=== PATIENT | female | born 1985 | race Caucasian/White ===

== ENCOUNTER 2022-07-01 19:50 | Emergency (ER) | payer OTHER, SELFPAY ==
[2022-07-01 20:02] VITALS: BP 135/82; PULSE 85; RESP 19; TEMP 36.7; O2SAT 99
--- NOTE | 2022-07-01 20:30 | ED.ANIMALBIT ---
HPI - Animal Bite General Chief Complaint: Animal Bite Stated Complaint: bat exposure, unknown if bitten/scratched Time Seen by Provider: 07/01/22 20:14 History of Present Illness HPI narrative: Patient is a 37-year-old female who is currently about 16 weeks here for evaluation of a bat exposure earlier today. Patient states that her and her were sleeping in the room, and then woke up and noticed that a bat was flying around the room. They are unsure how the bat got in the room, how long it was there, or if they were exposed. They called the health department who recommended coming into the emergency department for the rabies immunoglobulin and vaccine. She is currently asymptomatic. Bat was not quarantined. Tetanus UTD Related Data Home Medications Medication Instructions Recorded Confirmed Daily 07/01/22 Effexor 07/01/22 aspirin 81 mg chewable tablet 81 mg PO DAILY 07/01/22 07/01/22 Allergies Allergy/AdvReac Type Severity Reaction Status Date / Time amoxicillin Allergy Unknown Verified 07/01/22 20:06 Review of Systems Review of Systems: Gen.: Denies fevers or chills Eyes: Denies eye pain or visual change ENT: Denies congestion Respiratory: Denies shortness of breath or cough CV: Denies chest pain or palpitations GI: Denies abdominal pain nausea, emesis or diarrhea denies burning, urgency, frequency or hematuria Musculoskeletal: Denies back pain or muscle pain Neuro: Denies numbness, tingling, weakness or focal weakness Skin: Denies rash Except as documented, all other systems reviewed and negative Exam Narrative: APPEARANCE: Well appearing, no pain in distress, well-nourished. Head: Normocephalic and atraumatic. EYES: PERRLA/EOMI, conjunctivae clear NOSE: No nasal drainage EARS: External ear normal in appearance THROAT: Oropharynx is clear. Mucous membranes are moist. NECK: Supple. No adenopathy, no masses. RESPIRATORY: Airway patent, respirations nonlabored. Clear to auscultation bilaterally, no rales, rhonchi, wheezing. CARDIOVASCULAR: Regular rate and rhythm without murmurs, rubs, or gallops. ABDOMINAL: Normoactive bowel sounds. Soft, nontender, nondistended. No rebound tenderness or guarding. MUSCULOSKELETAL: Extremities are warm and well-perfused. Moves all extremities well. No edema. NEURO: Normal speech. No focal neurologic deficits. SKIN: Skin is warm and dry. No rashes. PSYCHIATRIC: Normal affect/mood.. Course Vital Signs Vital signs: Vital Signs Temperature 98.0 F 07/01/22 20:02 Pulse Rate 85 07/01/22 20:02 Respiratory Rate 19 07/01/22 20:02 Blood Pressure 135/82 07/01/22 20:02 Pulse Oximetry 99 07/01/22 20:02 Oxygen Delivery Room Air 07/01/22 20:02 Temperature 98.0 F 07/01/22 20:02 Pulse Rate 86 07/01/22 22:39 Respiratory Rate 18 07/01/22 22:39 Blood Pressure 135/82 07/01/22 20:02 Pulse Oximetry 100 07/01/22 22:39 Oxygen Delivery Room Air 07/01/22 20:02 MDM - Animal Bite MDM Narrative Medical decision making narrative: 37-year-old female here for evaluation and rabies vaccine/immunoglobulin per recommendation of health department after exposure to a bat earlier today. Vital signs are normal and she is nontoxic-appearing. Discussed risks vs. benefits of rabies vaccine in ; evidence supports administration of vaccine and immunoglobulin. Patient elected to proceed with vaccination. She was given anticipatory guidance regarding the next steps for the vaccine, which she was given reasons to return to the ED. Discharge Plan Discharge Clinical Impression: Exposure to bat without known bite Patient Disposition: Home, Self-Care Condition: Stable Instructions: Antibiotic Form Additional Instructions: You were administered the rabies vaccine in the emergency department today. Our infectious disease nurse will be in contact with you to arrange the subsequent doses of the vaccine, he will need t
[2022-07-01] MEDS: RABIES VACCINE (RABAVERT) 2.5 UNITS VIAL IM (21:57)
[2022-07-01] MEDS: RABIES IMMUNE GLOBULIN/PF 1,500 UNITS/5 ML VIAL 2480 UNITS IM (21:58)
[2022-07-01 22:39] VITALS: PULSE 86; RESP 18; O2SAT 100
== END 2022-07-01 22:40 | disposition home or self-care (01) ==
PROVIDERS: Emergency Provider General Practice
DX: O99.891 Other specified diseases and conditions complicating pregnancy (principal); Z20.3 Contact with and (suspected) exposure to rabies; Z29.14 Encounter for prophylactic rabies immune globulin; Z23 Encounter for immunization; Z3A.16 16 weeks gestation of pregnancy
CPT/HCPCS: 90471; 90675; 96372; 99283; 90375

== ENCOUNTER 2022-07-15 07:41 | Outpatient (RCR) | payer OTHER, SELFPAY | END 2022-10-02 23:59 | disposition home or self-care (01) | LOC: ANHVASCINF 07:41 | PROVIDERS: Visit Provider Physician Assistant | DX: Z20.3 Contact with and (suspected) exposure to rabies (principal) | CPT/HCPCS: 90471; 90675 ==